=== PATIENT | female | born 2000 | race Caucasian/White ===

== ENCOUNTER 2020-12-08 00:32 | Inpatient (IN) | payer OTHER ==
[2020-12-08 01:10] VITALS: BMI 27.7
[2020-12-08] MEDS ORDERED: hydrALAZINE 20 MG/ML VIAL SLOW IVP PRN ×3 (01:37→13:23)
--- NOTE | 2020-12-08 01:40 | PDOC.FPROB ---
FMR OB H&P: HPI - History of Present Illness Chief Complaint: contractions Indentification: 20 yo at 38.4 by LMP/9 wk sono History of Present Illness: Patient complaining of contractions starting around 9 pm every 5 min last night. Contractions then became very painful around 11 pm and continued so she came in. Denies VB, VD, LOF. Endorses FM. 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 Denies STIs. - Surgical History Sx History: denies - Social History Social History: denies. - Family History Family History: denies [facility]MR OB H&P: Medications - Current Home Medications: Medication Instructions Recorded Confirmed Type Vits96/Iron Fum/Folic 12/08/20 History [ Tablet] Allergies/Adverse Reactions: Allergies Allergy/AdvReac Type Severity Reaction Status Date / Time No Known Allergies Allergy Verified 12/08/20 01:11 FMR OB H&P: ROS - Review of Systems General: denies: fever/chills, fatigue Eyes: denies: vision changes ENT: denies: nasal congestion, sore throat Cardiovascular: denies: chest pain, edema Respiratory: denies: cough, shortness of breath Gastrointestinal: reports: vomiting (x1 just now). denies: abdominal pain, cramping, nausea Genitourinary (Female): reports: vaginal discharge (a little bit of mucus like a mucus plug), contractions. denies: dysuria, vaginal pain, vaginal bleeding Neurologic: denies: weakness, headache Integumentary: denies: rash Breast: denies: skin changes Hematologic/Lymphatic: denies: prolonged or excessive bleeding Psychological: denies: depression, anxiety FMR OB H&P: Vital Signs - Maternal Vital signs: BP 124/76 HR 84 Temp 96.1 RR 16 O2 96% on RA - Heart Tones Baseline: 140 Variability: moderate Acceleration: present Deceleration: absent Category: category 1 [place] contractions every: 2-5 min FMR OB H&P: Physical Exam - Physical Exam General: NAD, awake, alert and oriented HEENT: normocephalic and atraumatic, MMM, no scleral icterus, grossly normal hearing, good dention Neck: supple, trachea midline Heart: RRR, normal S1/S2, no murmurs/rubs/gallops General: CTAB, no respiratory distress Abdomen: soft, gravid Musculoskeletal: pulses present, FROM in all four extremities Neurological: no focal deficit Skin: no rash, good tugor Lymphatic: no unusual bruising or bleeding Psychiatric: intact recent and remote memory, normal mood and affect - Pelvic Exam SVE: 390/-1 per RN Membranes: intact Estimated Weight: 6 lbs FMR OB H&P: A/P Disposition: admit to L&D, expectant mgmt, augment if needed. ELOS >48H. Discussion: Date/Time: 12/08/20 0138 20 yo at 38.4 wga: Contractions In latent labor - cervical change from /-1 to /-1 over 1 hour. - admit to L&D - denies complications this - GBS neg This H&P was discussed with Dr. Fernandes who agree with the above documentation and plan. Signature: Blake Villegas MD PGY2
[2020-12-08] MEDS ORDERED: Methylergonovine 0.2 MG/ML VIAL IM PRN (02:30)
[2020-12-08] MEDS ORDERED: NS / Oxytocin 40 units/1000ml 1,000 ML IV PRN (02:30)
[2020-12-08] MEDS ORDERED: Acetaminophen 500 MG TAB PO PRN (02:30)
[2020-12-08] MEDS ORDERED: Docusate 100 MG CAP PO PRN (02:30)
[2020-12-08] MEDS ORDERED: Ibuprofen 800 MG TAB PO PRN (02:30)
[2020-12-08] MEDS ORDERED: Promethazine HCl 25 MG/ML VIAL IM PRN ×3 (02:30→13:23)
[2020-12-08] MEDS ORDERED: Butorphanol Tartrate 1 MG/ML VIAL SLOW IVP PRN (02:30)
[2020-12-08] MEDS ORDERED: Lidocaine 1% (PF) 30 ML VIAL SC PRN (02:30)
[2020-12-08] MEDS ORDERED: Misoprostol 200 MCG TAB PR PRN (02:30)
[2020-12-08] MEDS ORDERED: Carboprost 250 MCG/ML AMP IM PRN (02:30)
[2020-12-08 03:20] LABS: Hemoglobin 11.9 g/dL (12.0-16.0); Mean Corpuscular HGB CONC 33.8 g/dL (32.0-36.0); Mean Corpuscular Hemoglobin 29.3 pg (27.0-31.0); Mean Corpuscular Volume 86.6 fL (78.0-98.0); Mean Platelet Volume 7.6 fL (7.4-10.4); Platelet Count 372 thou/uL (130-400); RBC Distribution Width 11.4 % (11.5-14.5); Red Blood Cell (RBC) Count 4.06 mill/uL (4.20-5.40); White Blood Cell (WBC) Count 22.5 thou/uL (4.8-10.8)
[2020-12-08] MEDS: Ondansetron PF 4 MG/2 ML Vial IVP PRN ×2 (03:26→07:53)
[2020-12-08] MEDS: Lactated Ringer's 1,000 ML IV SCH ×2 (03:29→06:00)
[2020-12-08] MEDS ORDERED: Fentanyl 4 mcg/Bup 0.1% Cadd 0 ML ONE (03:33)
[2020-12-08] MEDS ORDERED: Fentanyl 4 mcg/Bup 0.1% Cadd 100 ML ONE (03:55)
[2020-12-08 04:05] LABS: HBSAg Index 0.16 S/CO (0-0.99); Hep B Surf Ag Non-Reactive S/CO (NonReactive)
[2020-12-08] MEDS ORDERED: ePHEDrine 50 MG/ML VIAL SLOW IVP PRN (04:21)
[2020-12-08] MEDS ORDERED: Ondansetron PF 4 MG/2 ML Vial IVP PRN ×2 (04:21→13:23)
[2020-12-08] MEDS ORDERED: Lactated Ringer's 500 ML IV PRN (04:21)
[2020-12-08] MEDS ORDERED: diphenhydrAMINE 50 MG/ML VIAL IVP PRN (04:21)
[2020-12-08] MEDS ORDERED: Acetaminophen 325 MG TAB PO PRN (04:21)
[2020-12-08] MEDS ORDERED: Naloxone HCl 0.4 mg/ml Vial IVP PRN ×2 (04:21)
[2020-12-08] MEDS ORDERED: Fentanyl 4 mcg/Bupivacaine 0.1% Cassette 100 ML EPIDURAL SCH (04:30)
[2020-12-08] MEDS ORDERED: Communication Order-Pharmacy FS SCH (04:30)
[2020-12-08 04:53] LABS: Syphilis Antibody Nonreactive (Nonreactive); Syphilis Antibody Index 0.04 S/CO (<1.00 Non-Reactive)
[2020-12-08 08:34] LABS: SARS-CoV-2 PCR by NAA Not Detected (NotDetected)
[2020-12-08] MEDS ORDERED: FLU VACC QS2020-21(6MOS UP)/PF 60 MCG/0.5 ML SYRINGE IM ONE (09:00)
[2020-12-08] MEDS ORDERED: Bupivacaine HCl 0.25%/Epi 0.0005/PF 10 ML VIAL FS ONE (09:06)
[2020-12-08] MEDS: NS w/ Oxytocin 30 units 500 ML IVPB SCH ×2 (10:47→11:50)
[2020-12-08] MEDS ORDERED: NS / Oxytocin 40 units/1000ml 1,000 ML IV SCH (13:23)
[2020-12-08] MEDS ORDERED: Benzocaine-Menthol 82.5 ML CAN TOP PRN (13:23)
[2020-12-08] MEDS ORDERED: HYDROcodone/Acetaminophen 5/325 mg Tablet PO PRN ×2 (13:23)
[2020-12-08] MEDS ORDERED: Zolpidem Tartrate 5 MG TAB PO PRN (13:23)
[2020-12-08] MEDS ORDERED: diphenhydrAMINE 25 MG CAP PO PRN (13:23)
[2020-12-08] MEDS ORDERED: Preparation H Ointment 28 GM TUBE PR PRN (13:23)
[2020-12-08] MEDS ORDERED: Adacel (T-DAP) 0.5 ML SYRINGE IM ONE (13:23)
[2020-12-08] MEDS ORDERED: Bisacodyl 10 MG SUPP PR PRN (13:23)
[2020-12-08] MEDS ORDERED: Milk Of Magnesia 30 ML UDCUP PO PRN (13:23)
[2020-12-08] MEDS ORDERED: Lanolin Ointment 7 GM TUBE TOP PRN (13:23)
[2020-12-08] MEDS: Ibuprofen 800 MG TAB PO SCH ×2 (14:27→20:08)
[2020-12-08] MEDS ORDERED: Ferrous Sulfate 325 MG TAB PO SCH (17:00)
[2020-12-08] MEDS ORDERED: Docusate Calcium (SURFAK) 240 MG CAP PO SCH (21:00)
[2020-12-09] MEDS: Ibuprofen 800 MG TAB PO SCH (04:37)
--- NOTE | 2020-12-09 07:24 | PRG ---
DATE OF SERVICE: 12/09/2020 TIME OF SERVICE: 0700 hours. The patient is doing well, status post , second-degree laceration. Baby is doing well. Fundus is firm. Vitals are stable. The patient is doing well. Due to move to [facility], the patient will be transferred via ambulance along with her baby later today. Anticipated discharge home a.m., 12/10. Job ID: [id number]
[2020-12-09 08:12] VITALS: BP 111/65; TEMP 98
[2020-12-09] MEDS ORDERED: Prenatal Vitamin 1 TAB PO SCH (09:00)
== END 2020-12-09 08:50 | disposition short-term general hospital (02) | DRG 807 ==
LOC: L&D/OP 00:32 → L&D 02:30 → 3SW 14:16
PROVIDERS: ADMIT Obstetrics & Gynecology; ATTEND Obstetrics & Gynecology
PROC: 10E0XZZ Delivery of Products of Conception, External Approach (ICD-10-PCS; principal; 2020-12-08)
PROC: 0KQM0ZZ Repair Perineum Muscle, Open Approach (ICD-10-PCS; 2020-12-08)
PROC: 10907ZC Drainage of Amniotic Fluid, Therapeutic from Products of Conception, Via Natural or Artificial Opening (ICD-10-PCS; 2020-12-08)
DX: O70.1 Second degree perineal laceration during delivery (principal); Z37.0 Single live birth; Z20.822 Contact with and (suspected) exposure to COVID-19; Z3A.38 38 weeks gestation of pregnancy
CPT/HCPCS: 36415; 51702; 85027; 86780; 86850; 86900; 86901; 87340; 87635; 99285; J0595; J2405; J2590; U0003; U0005